=== PATIENT | female | born 1995 | race African-American/Black ===

== ENCOUNTER 2017-02-15 16:18 | Emergency (ER) | payer SELFPAY ==
[~2017-02-15] VITALS: Ht 162.6 cm; Wt 52.0 kg
[~2017-02-15 16:18] MED LIST: AUGMENTIN400 MG/5 M OR; NO HOME MEDS
[2017-02-15 16:44] VITALS: BP 129/77
== END 2017-02-15 16:50 | disposition home or self-care (01) | DRG 93 ==
LOC: ED 16:18
DX: R25.2 Cramp and spasm (principal); R21 Rash and other nonspecific skin eruption

== ENCOUNTER 2020-05-13 12:42 | Emergency (ER) | payer OTHER ==
[~2020-05-13] VITALS: Ht 154.9 cm; Wt 52.0 kg
[2020-05-13 13:55] LABS: URINE BILIRUBIN - DIPSTICK NEGATIVE (NEGATIVE); URINE BLOOD DIPSTICK NEGATIVE (NEGATIVE); URINE CLARITY CLEAR; URINE COLOR YELLOW; URINE GLUCOSE - DIPSTICK NEGATIVE (NEGATIVE); URINE KETONE NEGATIVE (NEGATIVE); URINE LEUK ESTERASE NEGATIVE (Negative); URINE NITRITE - DIPSTICK NEGATIVE (Negative); URINE PROTEIN - DIPSTICK NEGATIVE (NEG-TRACE); URINE UROBILINOGEN - DIPSTICK 0.2 E.U./dL (0.2)
[2020-05-13 15:01] VITALS: BP 122/60
== END 2020-05-13 15:15 | disposition home or self-care (01) | DRG 914 ==
LOC: ED 12:42
DX: T14.8XXA Other injury of unspecified body region, initial encounter (principal); M54.5 Low back pain; R10.2 Pelvic and perineal pain; M25.512 Pain in left shoulder; M25.511 Pain in right shoulder; V43.52XA Car driver injured in collision with other type car in traffic accident, initial encounter

== ENCOUNTER 2022-04-27 11:10 | Emergency (ER) | payer BC ==
[~2022-04-27] VITALS: Ht 160 cm; Wt 55.8 kg
[2022-04-27 11:28] VITALS: BP 105/65
[2022-04-27 11:30] VITALS: BP 119/79
[2022-04-27] MEDS ORDERED: VOLTAREN1%GEL TOP (12:04)
[2022-04-27 12:18] VITALS: BP 119/79
== END 2022-04-27 12:25 | disposition home or self-care (01) | DRG 556 ==
LOC: ED 11:10
DX: M25.512 Pain in left shoulder (principal)